=== PATIENT | male | born 1990 | race Caucasian/White ===

== ENCOUNTER 2018-05-18 09:04 | Emergency (ER) | payer MEDICAID ==
[~2018-05-18] VITALS: Wt 91.0 kg
[~2018-05-18 09:04] MED LIST: HYDR-3498 PO
--- NOTE | 2018-05-18 11:23 | ERD ---
ER Documentation Chief Complaint Chief Complaint R KNEE PAIN X 6 MONTH HPI This is a 27-year-old male who presents for evaluation of right knee pain for the last 6 months. Patient states yesterday diagnosed with gout, which affected his toe and same knee. He denies fever, no history of trauma. ROS All systems reviewed and are negative except as per history of present illness. Medications Home Meds Active Scripts Prednisone* (Prednisone*) 20 Mg Tab, 60 MG PO DAILY for 5 Days, TAB Prov:NARGIS MCDONALD MD 05/18/18 Ibuprofen* (Motrin*) 600 Mg Tab, 600 MG PO Q6, #30 TAB Prov:NARGIS MCDONALD MD 05/18/18 Hydrocodone Bit-Acetaminophen* ([place]*) 5-325 Mg Tab, 1 TAB PO Q4H PRN for PAIN, #30 TAB 1 Refill Prov:JACKY CANDELARIA 07/07/15 Allergies Allergies: Coded Allergies: No Known Allergy (Unverified , 07/05/15) PMhx/Soc Medical and Surgical Hx: pt denies Medical Hx, pt denies Surgical Hx History of Surgery: No Anesthesia Reaction: No Hx Neurological Disorder: No Hx Respiratory Disorders: No Hx Cardiac Disorders: No Hx Psychiatric Problems: No Hx Miscellaneous Medical Probl: Yes Hx Alcohol Use: Yes (on occassion) Hx Substance Use: No Hx Tobacco Use: No Smoking Status: Never smoker Physical Exam Vitals Vital Signs Date Temp Pulse Resp B/P (MAP) Pulse Ox O2 O2 Flow FiO2 Time Delivery Rate 05/18/18 98.1 89 19 130/81 100 Room Air 11:40 (97) 05/18/18 98.1 78 18 139/74 99 09:06 (95) Physical Exam Const: No acute distress Head: Atraumatic Eyes: Normal Conjunctiva ENT: Normal External Ears, Nose and Mouth. Neck: Full range of motion. No meningismus. Resp: Clear to auscultation bilaterally Cardio: Regular rate and rhythm, no murmurs Abd: Soft, non tender, non distended. Normal bowel sounds Skin: No petechiae or rashes Back: No midline or flank tenderness Ext: No cyanosis, or edema. There is diffuse tenderness over the patella, there are no deformities noted, no effusion, no overlying erythema and no puncture wounds. Pulses are intact distally. Neur: Awake and alert Psych: Normal Mood and Affect Procedures/MDM 27-year-old male presents for evaluation of knee pain. Exam reveals a well- appearing nontoxic male in no acute distress, since symptoms are most likely related to gout attack. He is afebrile, he has no history of trauma, will start short course of steroids, as well as NSAIDs, at discharge the patient was in no acute distress Departure Diagnosis: Primary Impression: Knee pain Chronicity: unspecified Laterality: unspecified laterality Qualified Codes: M25.569 - Pain in unspecified knee Additional Impression: Gout Gout site: unspecified site Gout etiology: unspecified cause Chronicity: unspecified Qualified Codes: M10.9 - Gout, unspecified Condition: NARGIS Cummings MD May 18, 2018 11:22
[2018-05-18] MEDS ORDERED: IBUP-1542 PO (11:24)
[2018-05-18] MEDS ORDERED: PRED20TA PO (11:24)
[2018-05-18 11:40] VITALS: BP 130/81; PULSE 89; RESP 19
== END 2018-05-18 11:50 | disposition home or self-care (01) ==
LOC: FTE 09:04
DX: M25.561 Pain in right knee (principal); M10.9 Gout, unspecified
CPT/HCPCS: 99283